=== PATIENT | female | born 1965 | race Caucasian/White ===

== ENCOUNTER 2018-09-03 08:22 | Emergency (ER) | payer BC ==
[2018-09-03 09:15] VITALS: BP 155/77
--- NOTE | 2018-09-03 09:47 | RAD ---
Indication: Lateral RIGHT ankle pain following rolling injury yesterday. Comparison: No relevant prior exams available on the [facility] PACS for comparison. Technique: AP, mortise, and lateral views RIGHT ankle. Report: Small talocrural joint effusion. Irregularly shaped although chronic appearing ossicle at the inferomedial margin of the lateral malleolus most consistent with sequela of previous anterior talofibular ligament injury. No acute fracture or osteochondral lesion evident. Negative for significant joint space narrowing. Soft tissue swelling most prominent over the lateral malleolus. IMPRESSION: #. Soft tissue swelling most prominent over the lateral malleolus. Small talocrural joint effusion. #. Sequela of probable previous anterior talofibular ligament injury. #. No acute fracture or malalignment evident.
--- NOTE | 2018-09-03 10:34 | UC ---
Lower Extremity/Ankle HPI - HPI Summary HPI Summary: 52 yo WF p/w rolling over her right ankle on a doorhook on a ryg, inverting it, now red, and swollen able to ambulate - History of Current Complaint Chief Complaint: UCLowerExtremity Stated Complaint: RIGHT ANKLE INJURY Time Seen by Provider: 09/03/18 10:21 Hx Obtained From: Patient ?: Yes Onset/Duration: Sudden Onset Severity Initially: Moderate Severity Currently: Moderate Pain Intensity: 10 Aggravating Factor(s): Standing, Ambulation Alleviating Factor(s): Rest - Allergies/Home Medications Allergies/Adverse Reactions: Allergies Allergy/AdvReac Type Severity Reaction Status Date / Time No Known Allergies Allergy Verified 09/03/18 09:05 Home Medications: Home Medications Multivitamin [Multivitamins] 1 cap PO DAILY 09/03/18 [History Confirmed 09/03/18 ] PMH/Surg Hx/FS Hx/Imm Hx Previously Healthy: Yes - Surgical History Surgical History: None - Social History Alcohol Use: None Substance Use Type: None Smoking Status (MU): Former Smoker Type: Cigarettes Amount Used/How Often: 1/2 pack day When Did the Patient Quit Smoking/Using Tobacco: AGE 50 Review of Systems Constitutional: Negative Skin: Negative Eyes: Negative ENT: Negative Respiratory: Negative Cardiovascular: Negative Gastrointestinal: Negative Genitourinary: Negative Motor: Negative Neurovascular: Negative Musculoskeletal: Decreased ROM, Other: - see HPI Neurological: Negative Psychological: Negative All Other Systems Reviewed And Are Negative: Yes Physical Exam - Summary Physical Exam Summary: Vital Signs Reviewed: Yes Appearance: Positive: Well-Appearing Skin: Positive: Warm Head/Face: Positive: Normal Head/Face Inspection Eyes: Positive: Normal, EOMI, HALLIE ENT: Positive: Normal ENT inspection Neck: Positive: Supple Respiratory/Lung Sounds: Positive: Clear to Auscultation Cardiovascular: Positive: Normal, RRR, S1, S2 Abdomen Description: Positive: Nontender, Soft Musculoskeletal: Positive: right lateral malleolar erythema, swelling and restricted ROM due to pain Neurological: Positive: CN Intact II-XII Psychiatric: Positive: Normal Triage Information Reviewed: Yes Vital Signs: Initial Vital Signs Temp 36.5 C 09/03/18 09:07 Pulse 79 09/03/18 09:07 Resp 17 09/03/18 09:07 BP 155/77 09/03/18 09:07 Pulse Ox 100 09/03/18 09:07 Lower Extremity Course/Dx - Course Course Of Treatment: JOSELYN, Gel splint - Differential Dx/Diagnosis Provider Diagnoses: right ankle sprain Discharge - Sign-Out/Discharge Documenting (check all that apply): Patient Departure All imaging exams completed and their final reports reviewed: Yes - Discharge Plan Condition: Stable Disposition: HOME Patient Education Materials: Ankle Sprain (ED) - Billing Disposition and Condition Condition: STABLE Disposition: Home
== END 2018-09-03 10:45 | disposition home or self-care (01) ==
LOC: UCCORT 08:22
DX: S93.401A Sprain of unspecified ligament of right ankle, initial encounter (principal); W01.0XXA Fall on same level from slipping, tripping and stumbling without subsequent striking against object, initial encounter; Y92.9 Unspecified place or not applicable; Z87.891 Personal history of nicotine dependence
CPT/HCPCS: 99213; G0463